=== PATIENT | female | born 2000 | race Hispanic/Latino ===

== ENCOUNTER 2023-06-08 23:43 | Emergency (ER) | payer MEDICAID ==
[2023-06-09 00:52] LABS: SARS-CoV-2 NAA Rapid Test Not Detected (NotDetected)
[2023-06-09] MEDS ORDERED: Acetaminophen 500 MG TAB ONE (02:00)
== END 2023-06-09 02:07 | disposition home or self-care (01) ==
LOC: ERS 23:43
DX: J10.1 Influenza due to other identified influenza virus with other respiratory manifestations (principal)
CPT/HCPCS: 99283

== ENCOUNTER 2023-07-11 12:19 | Emergency (ER) | payer MEDICAID ==
[2023-07-11 13:16] LABS: Influenza A by NAA Not Detected (NotDetected); Influenza B by NAA Not Detected (NotDetected); SARS-CoV-2 NAA Rapid Test Not Detected (NotDetected)
[2023-07-11] MEDS ORDERED: Dexamethasone 10 MG/ML VIAL ONE (13:56)
== END 2023-07-11 13:55 | disposition home or self-care (01) ==
LOC: ERS 12:19
DX: H10.9 Unspecified conjunctivitis (principal); J06.9 Acute upper respiratory infection, unspecified; Z20.828 Contact with and (suspected) exposure to other viral communicable diseases
CPT/HCPCS: 87081; 87430; 99283; J1100